=== PATIENT | male | born 1985 | race Caucasian/White ===

== ENCOUNTER 2023-08-30 13:13 | Observation (INO) ==
[2023-08-30] MEDS ORDERED: IOPAMIDOL 100 ML BOTTLE IV ONE (13:14)
[2023-08-30 14:08] LABS: POC Calcium, Ionized 1.25 (1.16-1.32); POC Creatinine 0.8 (0.6-1.2)
[2023-08-30 14:45] LABS: Basophils # (Auto) 0.02 K/mcL (0.00-0.30); Basophils % (Auto) 0.3 % (0.0-2.0); Eosinophils # (Auto) 0 K/mcL (0.00-0.70); Eosinophils % (Auto) 0 % (0.0-7.0); Hematocrit 42.6 % (40.1-51.0); Hemoglobin 15.2 g/dL (13.7-17.5); Lymphocytes # (Auto) 0.38 K/mcL (1.50-4.80); Lymphocytes % (Auto) 5.2 % (15.5-49.0); Mean Cell Volume 96.6 fL (80.0-100.0); Mean Corpuscular HGB Conc 35.7 g/dL (31.0-36.0); Mean Platelet Volume 10.6 fL (8.8-12.5); Monocytes # (Auto) 0.67 K/mcL (0.10-0.90); Monocytes % (Auto) 9.2 % (1.0-12.0); Neutrophils % (Auto) 84.9 % (38.0-78.0); Platelet Count 135 K/mcL (140-440); RBC 4.41 M/mcL (4.63-6.08); Red Cell Distribution Width 11.5 % (11.5-14.5); WBC 7.3 K/mcL (4.5-11.0)
[2023-08-30] MEDS ORDERED: PIPERACILLIN SODIUM/TAZOBACTAM 3.375 GM in DEXTROSE 5% IN WATER 50 ML IV ONE (15:04)
[2023-08-30] MEDS ORDERED: 0.9 % SODIUM CHLORIDE 1,000 ML IV ONE (15:47)
[2023-08-30] MEDS ORDERED: ONDANSETRON 4 MG/2 ML VIAL IV PRN (17:46)
[2023-08-30] MEDS: DEXTROSE 5%-LR 1,000 ML IV SCH (18:46)
[2023-08-30] MEDS: PIPERACILLIN SODIUM/TAZOBACTAM 3.375 GM in DEXTROSE 5% IN WATER 50 ML IV SCH (19:19)
[2023-08-30 20:52] LABS: Blood Urea Nitrogen 6 mg/dL (6-20); Calcium 9.1 mg/dL (8.6-10.4); Carbon Dioxide 25 mmol/L (22-30); Chloride 95 mmol/L (96-108); Glomerular Filtration Rate 115; Glucose 122 mg/dL (70-105)
[2023-08-30] MEDS: ACETAMINOPHEN 1,000 MG/100 ML BAG IV SCH (21:53)
[2023-08-31] MEDS: LORazepam 2 MG/ML VIAL IV PRN (00:11)
[2023-08-31] MEDS: PIPERACILLIN SODIUM/TAZOBACTAM 3.375 GM in DEXTROSE 5% IN WATER 50 ML IV SCH ×4 (00:13→17:35)
[2023-08-31] MEDS: DEXTROSE 5%-LR 1,000 ML IV SCH ×3 (03:42→16:43)
[2023-08-31 05:51] LABS: Appearance,Urine CLEAR (Clear); Bilirubin,Urine Negative (Negative); Color,Urine STRAW; Culture Indicated,Urine No; Glucose,Urine (UA) Negative (Negative); Ketones,Urine Negative (Negative); Leukocyte Esterase,Urine Negative /uL (Negative); Nitrate,Urine Negative (Negative); Protein,Urine Negative (Negative); Specific Gravity,Urine 1.004 (1.000-1.035); Urine Blood Negative (Negative); Urobilinogen,Urine Negative
[2023-08-31] MEDS: ACETAMINOPHEN 1,000 MG/100 ML BAG IV SCH ×2 (06:10→19:14)
[2023-08-31 07:05] LABS: Hematocrit 40.9 % (40.1-51.0); Hemoglobin 14.3 g/dL (13.7-17.5); Mean Cell Volume 97.6 fL (80.0-100.0); Mean Platelet Volume 10.5 fL (8.8-12.5); Platelet Count 124 K/mcL (140-440); RBC 4.19 M/mcL (4.63-6.08); Red Cell Distribution Width 11.5 % (11.5-14.5)
[2023-08-31] MEDS ORDERED: fentaNYL 100 MCG/2 ML VIAL IV ONE ×2 (11:55→14:46)
[2023-08-31] MEDS ORDERED: KETAMINE 50 MG/ML Syringe IV ONE (11:55)
[2023-08-31] MEDS ORDERED: LIDOCAINE 2% PF 5 ML VIAL ONE (11:56)
[2023-08-31] MEDS ORDERED: SUGAMMADEX SODIUM 200 MG/2 ML VIAL IV ONE (11:56)
[2023-08-31] MEDS ORDERED: MAGNESIUM SULFATE 2 GM/50 ML BAG IV ONE (11:56)
[2023-08-31] MEDS ORDERED: ONDANSETRON 4 MG/2 ML VIAL ONE (11:56)
[2023-08-31] MEDS ORDERED: PROPOFOL 200 MG/20 ML VIAL IV ONE (11:56)
[2023-08-31] MEDS ORDERED: DEXAMETHASONE 10 MG/ML VIAL ONE (11:56)
[2023-08-31] MEDS ORDERED: ROCURONIUM 10 MG/ML ML IV ONE ×2 (11:56→13:53)
[2023-08-31] MEDS ORDERED: BUPIVACAINE W/EPI 0.5% 50 ML VIAL IJ ONE (13:35)
[2023-08-31] MEDS ORDERED: MEPERIDINE 25 MG/ML VIAL IV PRN (14:01)
[2023-08-31] MEDS ORDERED: PROMETHAZINE 25 MG/ML VIAL IV PRN (14:01)
[2023-08-31] MEDS ORDERED: ONDANSETRON 4 MG/2 ML VIAL IV PRN (14:01)
[2023-08-31] MEDS ORDERED: NALOXONE HCL 0.4 MG/ML VIAL IV PRN (14:01)
[2023-08-31] MEDS ORDERED: IPRATROPIUM/ALBUTEROL 3 ML AMPUL.NEB NEB PRN (14:01)
[2023-08-31] MEDS ORDERED: KETOROLAC 30 MG/ML VIAL IV PRN (14:01)
[2023-08-31] MEDS ORDERED: LACTATED RINGERS 250 ML IV PRN (14:01)
[2023-08-31] MEDS ORDERED: diphenhydrAMINE 50 MG/ML VIAL IV PRN (14:01)
[2023-08-31] MEDS ORDERED: LACTATED RINGERS 1,000 ML IV SCH (14:15)
[2023-08-31] MEDS: fentaNYL 100 MCG/2 ML VIAL IV PRN ×3 (15:07→15:44)
[2023-08-31] MEDS: HYDROmorphone 0.5 MG/0.5 ML SYRINGE IV PRN ×2 (17:44→21:14)
[2023-08-31] MEDS ORDERED: oxyCODONE IR 5 MG TABLET PO ONE (20:19)
[2023-08-31] MEDS: oxyCODONE IR 5 MG TABLET PO PRN (20:20)
[2023-09-01] MEDS: LORazepam 2 MG/ML VIAL IV PRN (00:37)
[2023-09-01] MEDS: oxyCODONE IR 5 MG TABLET PO PRN ×3 (00:38→10:44)
[2023-09-01] MEDS: PIPERACILLIN SODIUM/TAZOBACTAM 3.375 GM in DEXTROSE 5% IN WATER 50 ML IV SCH ×2 (00:39→05:23)
[2023-09-01] MEDS: ACETAMINOPHEN 1,000 MG/100 ML BAG IV SCH ×2 (01:06→05:46)
[2023-09-01] MEDS: DEXTROSE 5%-LR 1,000 ML IV SCH ×3 (01:43→11:56)
[2023-09-01] MEDS: HYDROmorphone 0.5 MG/0.5 ML SYRINGE IV PRN ×2 (04:35→12:58)
[2023-09-01 07:02] LABS: Hemoglobin 13.2 g/dL (13.7-17.5); Mean Cell Volume 99.2 fL (80.0-100.0); Mean Corpuscular HGB Conc 34.7 g/dL (31.0-36.0); Mean Platelet Volume 10.1 fL (8.8-12.5); Platelet Count 145 K/mcL (140-440); RBC 3.83 M/mcL (4.63-6.08); Red Cell Distribution Width 11.5 % (11.5-14.5); WBC 7.7 K/mcL (4.5-11.0)
== END 2023-09-01 13:50 | disposition home or self-care (01) ==
LOC: ED 13:13 → MEDSUR 13:13
PROVIDERS: ADMIT Surgery Surgical Critical Care; ATTEND Surgery Surgical Critical Care